=== PATIENT | female | born 1950 | race Caucasian/White ===

== ENCOUNTER → 2016-07-01 | Outpatient (CLI) | payer MEDICARE, MEDICAID ==
[~2016-07-01] MED LIST: ARFO15VI INH; BUDE0.5A INH; DIPH1TAB PO; IPRA3AMP INH; OXYB5TAB7 PO
== END | disposition home or self-care (01) ==
LOC: CFH 13:01
PROVIDERS: ATTEND Internal Medicine Pulmonary Disease
DX: R91.8 Other nonspecific abnormal finding of lung field (principal)
CPT/HCPCS: 71250

== ENCOUNTER → 2016-08-25 | Outpatient (CLI) | payer MEDICARE, MEDICAID | END | disposition home or self-care (01) | LOC: PETCFH 09:37 | PROVIDERS: ATTEND Internal Medicine Pulmonary Disease | DX: R91.8 Other nonspecific abnormal finding of lung field (principal); K57.30 Diverticulosis of large intestine without perforation or abscess without bleeding | CPT/HCPCS: 78815; A9552 ==

== ENCOUNTER → 2017-02-22 | Outpatient (CLI) | payer MEDICARE, MEDICAID | LOC: CFH 12:23 | PROVIDERS: ATTEND Nurse Practitioner | DX: J84.10 Pulmonary fibrosis, unspecified (principal); R91.8 Other nonspecific abnormal finding of lung field | CPT/HCPCS: 71250 ==

== ENCOUNTER 2017-08-03 12:21 | Emergency (ER) | payer MEDICARE, MEDICAID ==
[~2017-08-03] VITALS: Ht 157.5 cm; Wt 84.3 kg
[2017-08-03 12:22] VITALS: BP 132/82
[2017-08-03] MEDS ORDERED: PROPARACAINE OPHTH 0.5%, 15ML ONE (12:43)
== END 2017-08-03 13:37 | disposition home or self-care (01) ==
LOC: ED 13:25
DX: H10.023 Other mucopurulent conjunctivitis, bilateral (principal); J44.9 Chronic obstructive pulmonary disease, unspecified; Z90.49 Acquired absence of other specified parts of digestive tract; Z90.710 Acquired absence of both cervix and uterus
CPT/HCPCS: 99283

== ENCOUNTER → 2017-12-15 | Outpatient (CLI) | payer MEDICARE, MEDICAID ==
[~2017-12-15] MED LIST changes: -IPRA3AMP INH; +IPRA3AMP30 INH
== END | disposition home or self-care (01) ==
LOC: CFH 13:33
PROVIDERS: ATTEND Nurse Practitioner
DX: Z12.2 Encounter for screening for malignant neoplasm of respiratory organs (principal); R91.1 Solitary pulmonary nodule; J84.10 Pulmonary fibrosis, unspecified; Z87.891 Personal history of nicotine dependence
CPT/HCPCS: G0297

== ENCOUNTER → 2018-01-21 | Outpatient (CLI) | payer MEDICARE, MEDICAID ==
[~2018-01-21] MED LIST changes: +ALBU1.25 NEB; +CALCIUM PO; +CHANTIX PO; +IBUPROFEN PO; +LEVO125T63 PO; +MV-M1TAB16 PO; +SIMV10TA3 PO
== END | disposition home or self-care (01) ==
LOC: STAR 14:42
PROVIDERS: ATTEND Internal Medicine
DX: Z01.818 Encounter for other preprocedural examination (principal); K92.1 Melena; R10.13 Epigastric pain
CPT/HCPCS: 93005

== ENCOUNTER 2018-01-28 10:10 | Day surgery (SDC) | payer MEDICARE, MEDICAID ==
[~2018-01-28] VITALS: Ht 157.5 cm; Wt 89.1 kg
[2018-01-28] MEDS ORDERED: hydrALAzine 20 MG/ML, 1ML IV PRN (10:30)
[2018-01-28] MEDS ORDERED: ONDANSETRON 2MG/ML, 2ML IV PRN (10:30)
[2018-01-28] MEDS ORDERED: LABETALOL 5MG/ML, 20ML IV PRN (10:30)
[2018-01-28] MEDS ORDERED: LACTATED RINGERS 1,000 ML IV SCH (10:39)
[2018-01-28] MEDS ORDERED: PROPOFOL 10 MG/ML, 20ML ONE ×2 (11:47)
== END 2018-01-28 13:40 | disposition home or self-care (01) ==
LOC: OUT 10:10
PROVIDERS: ATTEND Internal Medicine
DX: D12.2 Benign neoplasm of ascending colon (principal); K29.50 Unspecified chronic gastritis without bleeding; K57.30 Diverticulosis of large intestine without perforation or abscess without bleeding; E78.5 Hyperlipidemia, unspecified; E11.9 Type 2 diabetes mellitus without complications; F17.210 Nicotine dependence, cigarettes, uncomplicated; E78.00 Pure hypercholesterolemia, unspecified; E66.9 Obesity, unspecified; Z88.5 Allergy status to narcotic agent; Z88.8 Allergy status to other drugs, medicaments and biological substances
CPT/HCPCS: 43239; 45380; 45385; 88305; J2704; J7120

== ENCOUNTER → 2018-03-22 | Outpatient (CLI) | payer MEDICARE, MEDICAID | END | disposition home or self-care (01) | LOC: RAD 13:55 | PROVIDERS: ATTEND Nurse Practitioner | DX: J84.10 Pulmonary fibrosis, unspecified (principal); R91.8 Other nonspecific abnormal finding of lung field; M51.34 Other intervertebral disc degeneration, thoracic region | CPT/HCPCS: 71250 ==

== ENCOUNTER → 2018-03-25 | Outpatient (CLI) | payer MEDICARE, MEDICAID ==
[~2018-03-25] MED LIST changes: +AMINOPHYLLINE 25 MG/ML, 10ML ONE; +REGADENOSON 0.4 MG/5 ML SYRINGE ONE
== END | disposition home or self-care (01) ==
LOC: CFH 10:24
PROVIDERS: ATTEND Internal Medicine Cardiovascular Disease
DX: R07.89 Other chest pain (principal); E78.5 Hyperlipidemia, unspecified; R06.00 Dyspnea, unspecified; Z87.891 Personal history of nicotine dependence
CPT/HCPCS: 78452; 93017; 93306; A9502; J0280; J2785

== ENCOUNTER 2020-01-28 12:55 | Emergency (ER) | payer MEDICARE, MEDICAID ==
[~2020-01-28] VITALS: Ht 154.9 cm; Wt 92.4 kg
[~2020-01-28 12:55] MED LIST changes: -AMINOPHYLLINE 25 MG/ML, 10ML ONE; +OXYB5TAB10 PO; -OXYB5TAB7 PO; -REGADENOSON 0.4 MG/5 ML SYRINGE ONE; +SIMV10TA18 PO; -SIMV10TA3 PO
--- NOTE | 2020-01-28 13:57 | NUR ---
DR HA AT FOR EXAM. [facility] RECENTLY: INCREASED SOB, INTERMITTENT CHILLS, LOW GRAD FEVER, NAUSEA. HX COPD, HOME 02 AT 2 LNC (INCREASES TO 4LNC W/ ACTIVITY). PT A&OX4, ABLE TO SPEAK IN COMPLETE SENTENCES W/OUT DIFFICULTY, SKIN WNL. O2 SAT 98% ON 2LNC CURRENTLY.
[2020-01-28] MEDS ORDERED: ARFO15VI INH (14:07)
[2020-01-28] MEDS ORDERED: FLUT16SP24 NAS (14:07)
--- NOTE | 2020-01-28 14:30 | NUR ---
COMMODE CHAIR TO ROOM. PT ABLE TO TRANSFER TO COMMODE CHAIR W/OUT ASSIST & W/OUT DIFFICULTY.
--- NOTE | 2020-01-28 14:40 | NUR ---
PT RETURNED TO [facility] W/OUT INCIDENT. ADDITIONAL BLANKET PROVIDED.
[2020-01-28 14:45] LABS: BASOPHILS % (AUTO) 1 % (0-1); EOSINOPHILS % (AUTO) 2 % (1-7); LYMPHOCYTES % (AUTO) 23 % (22-44); MEAN CORPUSCULAR HEMOGLOBIN 27.8 pg (27.0-34.8); MEAN CORPUSCULAR HGB CONC 32.7 g/dL (32.4-35.8); MEAN PLATELET VOLUME 8.2 fL (7.4-10.4); MONOCYTES % (AUTO) 6 % (2-9); NEUTROPHILS % (AUTO) 68 % (42-75); PLATELET COUNT 264 x10^3/uL (130-400); RED BLOOD COUNT 3.97 x10^6/uL (3.82-5.3); RED CELL DISTRIBUTION WIDTH 14.4 % (9.6-15.2)
[2020-01-28 14:46] LABS: MD NO
[2020-01-28 14:50] LABS: ALANINE AMINOTRANSFERASE 18 U/L (12-78); ALBUMIN 3.1 g/dL (3.4-5.0); ANION GAP 3 mmol/L (5-15); C-REACTIVE PROTEIN, QUANT 0.34 mg/dL (0.02-0.49); CALCIUM 8.1 mg/dL (8.5-10.1); CHLORIDE 110 mmol/L (98-107); CREATININE 0.51 mg/dL (0.55-1.02)
[2020-01-28 14:55] LABS: ALKALINE PHOSPHATASE 71 U/L (45-117); BILIRUBIN,TOTAL 0.2 mg/dL (0.2-1.0)
[2020-01-28] MEDS ORDERED: ALBUTEROL/IPRATROPIUM 2.5MG/0.5MG, 3 ML NEB ONE (16:30)
[2020-01-28] MEDS ORDERED: ALBUTEROL/IPRATROPIUM 2.5MG/0.5MG, 3 ML ONE (16:46)
--- NOTE | 2020-01-28 16:46 | NUR ---
Kacy castillo in ED - 01/28/20 at 1647 by NITHYA CALLED RECEIVING UNIT; ON HOLD FOR 5 MINS. CALLING UNIT AGAIN.
--- NOTE | 2020-01-28 16:56 | NUR ---
PT REPORT TO NAILA SANTANA RN. PT CARE TRANSFERRED.
[2020-01-28 17:12] VITALS: BP 159/69
== END 2020-01-28 17:26 | disposition home or self-care (01) ==
LOC: ED 13:30
DX: J15.9 Unspecified bacterial pneumonia (principal); Z20.828 Contact with and (suspected) exposure to other viral communicable diseases; J44.9 Chronic obstructive pulmonary disease, unspecified
CPT/HCPCS: 36415; 71045; 80053; 82728; 83605; 83615; 84145; 85025; 86140; 87040; 87635; 94640; 99284

== ENCOUNTER 2020-07-30 11:38 | Emergency (ER) | payer MEDICARE, MEDICAID ==
[~2020-07-30] VITALS: Ht 154.9 cm; Wt 88.2 kg
[~2020-07-30 11:38] MED LIST changes: +FLUT16SP24 NAS
[2020-07-30 12:32] LABS: BASOPHILS % (AUTO) 1 % (0-1); EOSINOPHILS % (AUTO) 2 % (1-7); LYMPHOCYTES % (AUTO) 27 % (22-44); MEAN CORPUSCULAR HEMOGLOBIN 27.9 pg (27.0-34.8); MEAN CORPUSCULAR HGB CONC 32.7 g/dL (32.4-35.8); MEAN PLATELET VOLUME 8.4 fL (7.4-10.4); MONOCYTES % (AUTO) 6 % (2-9); NEUTROPHILS % (AUTO) 64 % (42-75); PLATELET COUNT 309 x10^3/uL (130-400); RED BLOOD COUNT 4.55 x10^6/uL (3.82-5.3); RED CELL DISTRIBUTION WIDTH 14.8 % (9.6-15.2)
[2020-07-30 12:39] LABS: ALBUMIN 3.1 g/dL (3.4-5.0); ANION GAP 4 mmol/L (5-15); CALCIUM 8.6 mg/dL (8.5-10.1); CHLORIDE 106 mmol/L (98-107); CREATININE 0.63 mg/dL (0.55-1.02)
[2020-07-30 12:43] LABS: TROPONIN I < 0.015 ng/mL (0.000-0.045)
--- NOTE | 2020-07-30 13:00 | NUR ---
PT TO ROOM IN WC AT THIS TIME.
[2020-07-30] MEDS ORDERED: ALBUTEROL/IPRATROPIUM 2.5MG/0.5MG, 3 ML NPPB ONE (13:30)
[2020-07-30] MEDS ORDERED: ALBUTEROL/IPRATROPIUM 2.5MG/0.5MG, 3 ML ONE (14:11)
--- NOTE | 2020-07-30 14:17 | NUR ---
TASK RN: NEBULIZER ADMINISTER PER EMAR UP TO RESTROOM TO VOID-CC UA COLLECTED
--- NOTE | 2020-07-30 14:25 | NUR ---
PT STATES HAS HAD SOB COUGH AND CHEST PAIN WITH TIGHTNESS . PT STATES SHE MAY HAVE A RESPIRATORY INFECTION AND WANT TO GET IT CHECKED OUT.
--- NOTE | 2020-07-30 14:32 | NUR ---
WITH POST NEB ASSESSMENT: "MY BREATHING IS WAY BETTER, FROM 8/10 TO 4/10."
[2020-07-30 15:16] VITALS: BP 146/58
--- NOTE | 2020-07-30 15:48 | NUR ---
Patient given discharge instructions and they have confirmed that they understand the instructions. Patient ambulatory with steady gait. No questions at time of discharge.
== END 2020-07-30 15:50 | disposition home or self-care (01) ==
LOC: ED 15:43
DX: J43.9 Emphysema, unspecified (principal); R07.9 Chest pain, unspecified; R94.31 Abnormal electrocardiogram [ECG] [EKG]
CPT/HCPCS: 36415; 71045; 80048; 82040; 84484; 85025; 93005; 94640; 99285

== ENCOUNTER 2020-11-06 14:40 | Emergency (ER) | payer MEDICAID, MEDICARE ==
[~2020-11-06] VITALS: Ht 154.9 cm; Wt 90.4 kg
--- NOTE | 2020-11-06 19:23 | NUR ---
pt to room from lobby
--- NOTE | 2020-11-06 19:32 | NUR ---
pt c/o of being exposed to covid 19 and wants to be tested for covid due to her copd. pt states she has mild couch and mild sob but pt states it may just be her copd. pt states she does not feel bad or anything attached to monitors. vss. nadn. bed in low, rails engaged, call light on lap.
[2020-11-06] MEDS ORDERED: MAGN500T PO (19:55)
[2020-11-06] MEDS ORDERED: HYDR25TA6 PO (19:55)
[2020-11-06] MEDS ORDERED: METO50TA4 PO (19:55)
[2020-11-06] MEDS ORDERED: ASPI-963 PO (19:55)
[2020-11-06] MEDS ORDERED: LISI40TA9 PO (19:55)
[2020-11-06] MEDS ORDERED: MONT10TA17 PO (19:55)
[2020-11-06] MEDS ORDERED: ATOR20TA37 PO (19:55)
[2020-11-06] MEDS ORDERED: ENOXAPARIN 40 MG/0.4 ML ONE (20:37)
[2020-11-06 20:40] VITALS: BP 149/58
--- NOTE | 2020-11-06 21:16 | NUR ---
Patient/Caregiver given discharge instructions and they have confirmed that they understand the instructions. Patient ambulatory with steady gait. NAD, all questions answered appropriately, denies additional needs at this time. No personal belongings left in room after discharge. PT LEFT N O2 AND USES 3L NC AT HOME.
== END 2020-11-06 21:18 | disposition home or self-care (01) ==
LOC: ED 20:35
DX: R06.02 Shortness of breath (principal); Z20.822 Contact with and (suspected) exposure to COVID-19; R50.9 Fever, unspecified; J44.9 Chronic obstructive pulmonary disease, unspecified; Z90.89 Acquired absence of other organs; Z90.49 Acquired absence of other specified parts of digestive tract; Z90.710 Acquired absence of both cervix and uterus; Z87.891 Personal history of nicotine dependence
CPT/HCPCS: 71045; 87635; 99284; U0003; U0005